=== PATIENT | female | born 1975 | race Caucasian/White ===

== ENCOUNTER → 2016-04-22 | Outpatient (CLI) | payer BC, OTHER ==
[~2016-04-22] MED LIST: NORCO 5-325 TA1 EACH PO
== END ==
LOC: RAD 15:37
DX: M54.5 Low back pain (principal)

== ENCOUNTER → 2016-12-27 | Outpatient (CLI) | payer BC, OTHER ==
--- NOTE | ~2016-12-27 | 2DMMODE ---
[facility] [address] [place] [address] 2 D/M-MODE ECHOCARDIOGRAM Name: JOSÉ MIGUEL PAYNE DENISE Room #: REG CL Basil#: [id number] Admission: 12/27/16 Attend Phys: Diamond Mireles DNP Discharge: Date of : 73 Date of Service: 12/27/16 0953 Report #: [id number] THIS REPORT FOR: //name// APPROVED REPORT Study performed: 12/27/2016 09:14:42 EXAM: Comprehensive 2D, Doppler, and color-flow Echocardiogram Patient Location: Out-Patient Status: routine BSA: 1.70 HR: 69 bpm BP: 124/80 mmHg Rhythm: NSR Other Information Study Quality: Good Indications Murmur Near syncope 2D Dimensions RVDd: 33.28 mm LVEF(%): 55.50 (>50%) IVSd: 8.33 (7-11mm) LVOT Diam: 19.90 (18-24mm) LVDd: 43.31 mm PWd: 7.32 (7-11mm) Ascending Ao: 27.48 (22-36mm) LVDs: 30.90 (25-40mm) Aortic Root: 26.18 mm [place]'s LVEF: 55.50 % Volumes Left Atrial Volume (Systole) Single Plane 4CH: 41.37 mL Single Plane 2CH: 36.52 mL LA ESV Index: 24.00 mL/m2 Aortic Valve AoV Peak Brandon.: 1.67 m/s AO Peak Gr.: 11.18 mmHg LVOT Max P.30 mmHg LVOT Max V: 1.15 m/s COLEEN Vmax: 2.14 cm2 Mitral Valve E/A Ratio: 1.5 [facility] [place] [place] [address] 2 D/M-MODE ECHOCARDIOGRAM Name: PAYNE,JOSÉ MIGUEL [facility] Room #: REG [facility].#: [id number] Admission: 12/27/16 Attend Phys: Diamond Mireles DNP Discharge: Date of : 73 Date of Service: 12/27/16 0953 Report #: [id number] MV Decel. Time: 204.41 ms MV E Max Brandon.: 0.93 m/s MV A Brandon.: 0.63 m/s MV PHT: 59.28 ms IVRT: 72.66 ms Pulmonary Valve PV Peak Brandon.: 1.18 m/s PV Peak Gr.: 5.63 mmHg Pulmonary Vein P Vein S: 0.65 m/s P Vein A: 0.32 m/s P Vein D: 0.36 m/s P Vein A Dur.: 93.4 msec P Vein S/D Ratio: 1.81 Tricuspid Valve TR Peak Brandon.: 1.93 m/s RAP Estimate: 5.00 mmHg TR Peak Gr.: 14.91 mmHg PA Pressure: 20.00 mmHg Left Ventricle The left ventricle is normal size. There is normal LV segmental wall motion. There is normal left ventricular wall thickness. Left ventricular systolic function is normal. LVEF is 55-60%. The left ventricular diastolic function is normal. Right Ventricle The right ventricle is normal size. The right ventricular systolic function is normal. Atria The left atrium size is normal. The right atrium size is normal. Aortic Valve The aortic valve is normal in structure. No aortic regurgitation is present. There is no aortic valvular stenosis. Mitral Valve The mitral valve is normal in structure. Mild to moderate mitral regurgitation. Tricuspid Valve The tricuspid valve is normal in structure. Trace to mild tricuspid regurgitation. Estimated PAP is 20mmHg. Pulmonic Valve [address] [address] 2 D/M-MODE ECHOCARDIOGRAM Name: JOSÉ MIGUEL PAYNE [facility] Room #: REG CL Basil#: [id number] Admission: 12/27/16 Attend Phys: Diamond Mireles DNP Discharge: Date of : 73 Date of Service: 12/27/16 0953 Report #: [id number] The pulmonary valve is normal in structure. Trace pulmonic regurgitation. Great Vessels The aortic root is normal in size. The ascending aorta is normal in size. IVC is normal in size and collapses >50% with inspiration. Pericardium There is no pericardial effusion. <Conclusion> The left ventricle is normal size. Left ventricular systolic function is normal. The left ventricular diastolic function is normal. The right ventricle is normal size. The left atrium size is normal. The aortic valve is normal in structure. Mild to moderate mitral regurgitation. Trace to mild tricuspid regurgitation. Estimated PAP is 20mmHg. <ELECTRONICALLY SIGNED> By: Alvaro Lilly MD 12/27/1653 2 2 Alvaro Lilly MD /INF
== END ==
LOC: CV 06:30
DX: R55 Syncope and collapse (principal)

== ENCOUNTER → 2017-07-07 | Outpatient (CLI) | payer BC, OTHER | LOC: ULTRA 05:56 | DX: R10.13 Epigastric pain (principal); R68.81 Early satiety ==

== ENCOUNTER → 2020-01-31 | Outpatient (CLI) | payer OTHER | LOC: RAD 10:15 | PROVIDERS: ATTEND Nurse Practitioner | DX: M79.672 Pain in left foot (principal) ==

== ENCOUNTER → 2020-07-08 | Outpatient (CLI) | payer OTHER | LOC: LAB 09:44 | PROVIDERS: ATTEND Nurse Practitioner | DX: J02.9 Acute pharyngitis, unspecified (principal); R09.89 Other specified symptoms and signs involving the circulatory and respiratory systems; R06.02 Shortness of breath; R05 Cough; Z20.822 Contact with and (suspected) exposure to COVID-19 ==